=== PATIENT | male | born 1965 | race Caucasian/White ===

== ENCOUNTER 2017-09-25 14:48 | Emergency (ER) | payer BC ==
[~2017-09-25] VITALS: Ht 177.8 cm; Wt 80.4 kg
[2017-09-25 16:04] LABS: HEMATOCRIT 50.1 % (38.0-50.0); HEMOGLOBIN 17.1 G/DL (12.5-16.6); MCH 28.3 PG (29.0-34.0); MCHC 34.1 G/DL (30.0-36.0); MCV 82.9 FL (86-99); PLATELET COUNT 323 K/uL (156-360); RBC DIS.WIDTH-CV 12.6 % (11.8-14.6); RBC DIS.WIDTH-SD 37.6 % (39-53); RED BLOOD COUNT 6.04 M/uL (4.00-5.50); WHITE BLOOD COUNT 14.9 K/uL (4.1-10.2)
[2017-09-25 16:18] LABS: CHLORIDE 104 mEq/L (99-109); POTASSIUM 3.8 mEq/L (3.7-5.4); SODIUM 140 mEq/L (136-147)
[2017-09-25 16:19] LABS: GLUCOSE 121 mg/dL (70-99)
[2017-09-25 16:23] LABS: CREATININE 1.2 mg/dL (0.6-1.3); GFR ESTIMATE (CALCULATED) > 59 mL/min/ (58.99-99999)
[2017-09-25 16:24] LABS: UREA NITROGEN (BUN) 17 mg/dL (9-23)
[2017-09-25] MEDS ORDERED: MECLIZINE HCL25 MG PO (20:05)
[2017-09-25 20:14] VITALS: BP 138/94
== END 2017-09-25 20:20 | disposition home or self-care (01) ==
LOC: EME 14:48
DX: R42 Dizziness and giddiness (principal); K02.9 Dental caries, unspecified
CPT/HCPCS: 71020; 80048; 85027; 93005; 99281; 99284; J7030